=== PATIENT | male | born 1985 | race Caucasian/White ===

== ENCOUNTER → 2025-04-01 | Outpatient (CLI) | payer MEDICARE, MEDICAID, SELFPAY ==
--- NOTE | 2025-04-01 16:05 | RAD_ITS ---
PROCEDURE: FOOT MIN 3 VIEWS 04/01/2025 REASON FOR EXAM: FLAT FOOT TECHNIQUE: Procedure Code: RADFO Modality: DX Procedure: FOOT MIN 3 VIEWS Three views of the left foot COMPARISON: None FINDINGS: There is an old healed fracture of the 5th proximal phalanx. No acute fracture or dislocation is identified. A benign-appearing calcaneal spur is noted. The plantar arch appears maintained. There is no soft tissue abnormality or radiopaque foreign body. RAD/Foot min 3 Views IMPRESSION: No fracture or dislocation is identified. Reading Location: [facility]
--- NOTE | 2025-04-01 16:05 | RAD_ITS ---
PROCEDURE: FOOT MIN 3 VIEWS 04/01/2025 REASON FOR EXAM: FLAT FOOT TECHNIQUE: Procedure Code: RADFO Modality: DX Procedure: FOOT MIN 3 VIEWS Three views of the right foot COMPARISON: None FINDINGS: There is an old healed fracture of the 4th proximal phalanx. 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 A benign-appearing calcaneal spur is noted. The plantar arch is maintained. There is no soft tissue abnormality or radiopaque foreign body. RAD/Foot min 3 Views IMPRESSION: No acute fracture or dislocation is identified. Reading Location: [facility]
--- NOTE | 2025-04-01 16:05 | RAD_ITS ---
PROCEDURE: Bone length study 04/01/2025 REASON FOR EXAM: UNEGUAL LIMB LENGHT, LEFT TIBIA M, age 39 y/o . TECHNIQUE: Procedure Code: RADBL Modality: DX Procedure: BONE LENGTH COMPARISON: None available. FINDINGS: The following measurements were obtained: Right femur: 48.3 cm. Left femur: 48.3 cm. Difference: 0 cm. Right tibia: 37.6 cm. Left tibia: 38.2 cm. Difference: 0.6 cm. Total right: 85.9 cm. Total left: 86.5 cm. Difference: 0.6 cm. Femur = from the top of femoral head to the medial femoral condyle Tibia = from the medial femoral condyle to the center of the tibial plafond Total = femur plus tibia RAD/Bone Length IMPRESSION: Lower extremity lengths as above. No significant leg length discrepancy. Reading Location[facility]
== END | disposition home or self-care (01) ==
LOC: RAD 15:38
PROVIDERS: PCP Family Medicine; Referring Provider Podiatrist; Visit Provider Podiatrist
DX: M21.762 Unequal limb length (acquired), left tibia (principal); M21.41 Flat foot [pes planus] (acquired), right foot; M21.42 Flat foot [pes planus] (acquired), left foot
CPT/HCPCS: 73630; 77073